=== PATIENT | female | born 1965 | race African-American/Black ===

== ENCOUNTER → 2017-05-13 | Outpatient (CLI) | payer OTHER ==
[~2017-05-13] MED LIST: ALLEGRA ALLERG180 MG PO; BCP TD; BIAXIN500 MG PO; INDERAL 10MG10 MG PO; LIPITOR 40MG TA40 MG PO; LOPRESSOR 225 MG/TAB PO; MEDROL 4MG DOSPA4 MG PO; MYSOLINE 5050 MG/TAB PO; NO HOME MEDICATIONS; NORCO 325 MG-51 TAB PO; PHENERGAN 25 TA25 MG PO; PREDNISONE20 MG PO; PROAIR HFA0.09 MG/AC; PROAIR HFA0.09 MG/AC IH; PROTONIX 40MG T40 MG PO; TESSALON P100 MG/CAP PO; VENTOLIN0.09 MG IH; ZOFRAN ODT4 MG PO; ZYRTEC 10MG10 MG PO; [UNRECOGNIZED DRUG - OTHER]
== END ==
LOC: MHCPAIN 14:49
DX: G89.29 Other chronic pain (principal); M47.27 Other spondylosis with radiculopathy, lumbosacral region
CPT/HCPCS: G0463

== ENCOUNTER → 2017-08-08 | Outpatient (CLI) | payer OTHER | LOC: MHCPAIN 10:11 | DX: G89.29 Other chronic pain (principal); M47.817 Spondylosis without myelopathy or radiculopathy, lumbosacral region; M79.2 Neuralgia and neuritis, unspecified | CPT/HCPCS: G0463 ==

== ENCOUNTER 2018-09-29 09:56 | Emergency (ER) | payer OTHER ==
[~2018-09-29] VITALS: Ht 167.6 cm; Wt 90.9 kg
[2018-09-29 10:03] VITALS: TEMP 98.5
[2018-09-29 11:11] LABS: BILIRUBIN,TOTAL 1.1 mg/dL (0.0-1.0); CALCIUM 8.7 mg/dL (8.4-10.2); CREATININE, serum 0.85 (0.52-1.25); POTASSIUM 3.6 mmol/L (3.4-5.0); TOTAL PROTEIN 7.5 gm/dL (6.4-8.2)
[2018-09-29 11:56] LABS: BASO % 0.2 % (0.0-2.0); EOS # 0.2 (0.0-0.7); EOS % 3.5 % (0-4.0); GRAN # 3.9 (1.4-6.5); GRAN % 68.5 % (42.2-75.2); HEMOGLOBIN 11.8 g/dl (12.5-16.0); LYMPH # 1.1 (1.2-3.4); LYMPH % 18.6 % (20.0-51.0); MEAN CELL VOLUME 93 fl (80.0-100.0); MEAN CORPUSCULAR HEMOGLOBIN 31 pg (27.0-31.0); MEAN CORPUSCULAR HGB CONC 33 g/dl (33.0-37.0); MEAN PLATELET VOLUME 9.6 fl (7.4-10.4); MONO # 0.5 (0.1-0.6); MONO % 8.8 % (1.7-9.3); PLATELET COUNT 234 K/mm3 (130-400); RED BLOOD COUNT 3.85 M/mm3 (4.10-5.30); REDCELL DISTRIBUTION WIDTH-CV 12.9 % (11.5-14.5)
[2018-09-29 11:57] LABS: HEMATOCRIT 35.6 % (37.0-47.0)
[2018-09-29 12:19] LABS: COLLECTION METHOD CLEAN CATCH
[2018-09-29] MEDS ORDERED: ZOFRAN ODT4 MG PO (12:38)
[2018-09-29 12:40] LABS: MUCOUS Present /lpf; PH 5 (5-8); SQUAMOUS EPITHELIAL 0-2 /hpf; URINE APPEARANCE Hazy; URINE BACTERIA None Seen /hpf; URINE BILIRUBIN Negative (NEGATIVE); URINE BLOOD 2+ (NEGATIVE); URINE COLOR Yellow; URINE GLUCOSE Negative (NEGATIVE); URINE KETONE Negative (NEGATIVE); URINE LEUKOCYTE ESTERASE Negative (NEGATIVE); URINE NITRATE Negative (NEGATIVE); URINE PROTEIN(semi-quant) Negative (NEGATIVE); URINE UROBILINOGEN Negative (NEGATIVE)
[2018-09-29 13:03] VITALS: BP 125/83; PULSE 82
== END 2018-09-29 13:05 | disposition home or self-care (01) ==
LOC: COL.ER 09:56
PROVIDERS: Emergency Medicine; Nurse Practitioner
DX: R19.7 Diarrhea, unspecified (principal); R11.10 Vomiting, unspecified; J45.909 Unspecified asthma, uncomplicated; Z90.89 Acquired absence of other organs
CPT/HCPCS: J2405; J7030